=== PATIENT | male | born 2000 | race Caucasian/White ===

== ENCOUNTER 2022-06-15 18:43 | Emergency (ER) | payer BC, SELFPAY ==
--- NOTE | ~2022-06-15 | XR_ITS ---
EXAM: XR foot RT min 3V DATE: 06/15/2022 19:10 HISTORY: KICKING WITH PLANTAR SURFACE,PLANT.HEEL PN REFERRING UP POST . COMPARISON: None available. FINDINGS: Normal mineralization. No fracture or dislocation. No lytic or blastic lesion. Joint space s are maintained. No erosion or periosteal change. Soft tissues within normal limits. IMPRESSION: No acute osseous finding in the right foot. Reviewed, dictated and finalized at location [facility]
[2022-06-15 18:54] VITALS: BP 115/58; PULSE 87; RESP 18; TEMP 37.4; O2SAT 100
--- NOTE | 2022-06-15 19:24 | ED.LOWEXIN ---
HPI - Extremity Injury (Lower) General Chief Complaint: Extremity Injury, Lower Stated Complaint: Right Foot Injury Time Seen by Provider: 06/15/22 19:20 Source: patient, RN notes reviewed and old records reviewed Mode of arrival: ambulatory Limitations: no limitations History of Present Illness HPI Narrative: 22 year old male presents to [facility] care with complaints of kicking a board with his right heel region with pain for the past 3 days to area. Patient is able to bear weight to his right foot but is tender with ambulation. No bruising or redness noted to the plantar region of his right heel, no obvious deformity noted, patient has not taken any OTC medications for his discomfort. MD complaint: other (right heel pain) Onset (ago): day(s) (3) Type of Injury: blunt Severity scale (1-10): 6 Treatments prior to arrival: other (none) Related Data Allergies Allergy/AdvReac Type Severity Reaction Status Date / Time No Known Allergies Allergy Unknown Unverified 12/11/16 19:30 Review of Systems Review of Systems: CONSTITUTIONAL: Denies fever, chills, or sweats. EYES: Denies visual changes, redness, or discharge. ENT: Denies rhinorrhea, congestion, sore throat, or otalgia. CARDIOVASCULAR: Denies chest pain, palpitations, or edema. RESPIRATORY: Denies cough or dyspnea. GASTROINTESTINAL: Denies abdominal pain, nausea, vomiting, or diarrhea. GENITOURINARY: Denies dysuria or hematuria. SKIN: Denies rash or itching. MUSCULOSKELETAL: Denies back pain,positive for right plantar heel pain, or myalgia. NEUROLOGIC: Denies headache, numbness, or weakness. PSYCHIATRIC: Denies anxiety or depression. All systems reviewed & are unremarkable except as noted in HPI and below [facility] Past Medical History Medical History (Updated 06/24/22 @ 17:14 by Yuridia Arzola NP) ADHD (attention deficit hyperactivity disorder) Social History Social History (Updated 06/24/22 @ 17:19 by Yuridia Arzola NP) Smoking status: Unknown if ever smoked Alcohol intake: current Alcohol use details: social Substance use type: does not use Gender identity (if verbalized by the patient): Male Comments At time of signature, agree with nursing past medical, surgical, social and family history. There is no relevant family history pertinent to the presenting complaint Exam Narrative: GENERAL: Well-appearing, well-nourished, and in no acute distress. HEAD: Normocephalic, atraumatic. EYES: PERRLA and EOMI. ENT: Nares clear, no rhinorrhea or epistaxis. Mucous membranes moist.TM's normal with good light reflex, throat pink with no lesions or exudates or swelling NECK: Supple. no lymphadenopathy CHEST: Clear to auscultation. No respiratory distress.no cough noted ,SAO2 100% on room air HEART: Regular rate and rhythm. No murmur heard. Normal peripheral pulses. ABDOMEN: Soft, nontender, nondistended, normal active bowel sounds. EXTREMITIES: Normal range of motion. No edema.tenderness to right planter heel region with no redness or bruising noted. SKIN: Warm, dry, no rash. NEURO: No focal deficits. Alert and oriented x3. Course Course Emergency Course: Patient is aware of diagnosis, understands and agrees to treatment plan.? Anticipatory guidance given.? Patient agrees to follow-up as directed and is aware of reasons to seek care at the emergency department. Portions of this record may have been created with voice recognition software Level of Care: Express Care Visit Vital Signs Vital signs: Vital Signs Temperature 37.4 C 06/15/22 18:54 Pulse Rate 87 06/15/22 18:54 Respiratory Rate 18 06/15/22 18:54 Blood Pressure 115/58 L 06/15/22 18:54 Pulse Oximetry 100 06/15/22 18:54 Oxygen Delivery Room Air 06/15/22 18:54 Temperature 37.4 C 06/15/22 18:54 Pulse Rate 87 06/15/22 18:54 Respiratory Rate 18 06/15/22 18:54 Blood Pressure 115/58 L 06/15/22 18:54 Pulse Oximetry 100 06/15/22 18:54 Oxygen Delivery Room Air 06/15/22
== END 2022-06-15 19:50 | disposition home or self-care (01) ==
PROVIDERS: Emergency Provider Registered Nurse
DX: M79.671 Pain in right foot (principal)
CPT/HCPCS: 73630; 99203; G0463

== ENCOUNTER 2025-02-28 18:42 | Emergency (ER) | payer SELFPAY ==
[2025-02-28 19:01] VITALS: BP 144/82; PULSE 75; RESP 18; TEMP 36.5; O2SAT 99
[2025-02-28 19:43] LABS: EDCOVIDSCREEN Negative (Negative); EDINFLUASCREEN Negative (Negative); EDINFLUBSCREEN Negative (Negative); EDSTREPNEGPOS1 Negative (Negative)
--- NOTE | 2025-02-28 19:53 | ED_ITS ---
HPI - General Adult General Chief complaint: Upper Respiratory Infection Stated complaint: Sore Throat Source: patient Mode of arrival: ambulatory Limitations: no limitations History of Present Illness HPI narrative: Patient presents for evaluation of sore throat. Symptom onset today. He has had a mild cough for the last 2 days. 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 No fever, chills, nausea, vomiting, diarrhea. He does vape. He took a cough drop for his symptoms. Related Data Allergies Allergy/AdvReac Type Severity Reaction Status Date / Time apple skin Allergy Severe Hives Uncoded 02/28/25 19:00 Review of Systems Review of Systems: CONSTITUTIONAL: Denies fever, chills, or sweats. EYES: Denies visual changes, redness, or discharge. ENT: Reports sore throat. Denies rhinorrhea, congestion, or otalgia. CARDIOVASCULAR: Denies chest pain, palpitations, or edema. RESPIRATORY: Reports cough. Denies dyspnea. GASTROINTESTINAL: Denies abdominal pain, nausea, vomiting, or diarrhea. GENITOURINARY: Denies dysuria or hematuria. SKIN: Denies rash or itching. MUSCULOSKELETAL: Denies back pain, joint pain, or myalgia. NEUROLOGIC: Denies headache, numbness, dizziness, or weakness. PSYCHIATRIC: Denies anxiety or depression. PMFSH Past Medical History Medical History ADHD (attention deficit hyperactivity disorder) Surgical History Surgical History No pertinent past surgical history Family History Family History Mother Family history non-contributory Social History Social History Smoking status: Unknown if ever smoked Alcohol intake: current Alcohol use details: social Substance use type: does not use Gender identity (if verbalized by the patient): Male Exam Narrative: GENERAL: Well-appearing, well-nourished, and in no acute distress. HEAD: Normocephalic, atraumatic. EYES: PERRLA and EOMI. ENT: Nares clear, no rhinorrhea or epistaxis. Mucous membranes moist. Bilateral tonsillar swelling and erythema without exudate. Uvula is midline. Bilateral TMs pearly singh nonbulging NECK: Supple. No adenopathy or masses. No carotid bruits or JVD CHEST: Clear to auscultation. No respiratory distress. No wheezes rales or rhonchi HEART: Regular rate and rhythm. No murmur heard. Normal peripheral pulses. ABDOMEN: Soft, nontender, nondistended, normal active bowel sounds. EXTREMITIES: Normal range of motion. No edema. SKIN: Warm, dry, no rash. NEURO: No focal deficits. Alert and oriented x3. PSYCH: Normal mood and affect. Course Course Emergency Course: This is a 25-year-old male who presented for evaluation of sore throat. Rapid strep negative. Will send throat culture. Through shared decision making opted to proceed with antibiotic therapy. Will discharge with amoxicillin. Increase hydration. Adal-yni-gprfuyd agents for symptom management. Follow up with primary provider. Go to the ER for worsening symptoms. Patient in agreement with plan of care Level of Care: Express Care Visit Vital Signs Vital signs: Vital Signs Temperature 36.5 C 02/28/25 19:01 Pulse Rate 75 02/28/25 19:01 Respiratory Rate 18 02/28/25 19:01 Blood Pressure 144/82 H 02/28/25 19:01 Pulse Oximetry 99 02/28/25 19:01 Oxygen Delivery Room Air 02/28/25 19:01 Temperature 36.5 C 02/28/25 19:01 Pulse Rate 75 02/28/25 19:01 Respiratory Rate 18 02/28/25 19:01 Blood Pressure 144/82 H 02/28/25 19:01 Pulse Oximetry 99 02/28/25 19:01 Oxygen Delivery Room Air 02/28/25 19:01 Medical Decision Making Vital Signs Vital Signs: Vital Signs Temperature 36.5 C 02/28/25 19:01 Pulse Rate 75 02/28/25 19:01 Respiratory Rate 18 02/28/25 19:01 Blood Pressure 144/82 H 02/28/25 19:01 Pulse Oximetry 99 02/28/25 19:01 Oxygen Delivery Room Air 02/28/25 19:01 Temperature 36.5 C 02/28/25 19:01 Pulse Rate 75 02/28/25 19:01 Respiratory Rate 18 02/28/25 19:01 Blood Pressure 144/82 H 02/28/25 19:01 Pulse Oximetry 99 02/28/25 19:01 Oxygen Delivery Room Air 02/28/25 19:01 Lab Data Labs: Lab Results 02/28/25 Range/Units 19:41 POC Influenza A Ag Negative (Negative) POC Influenza B Ag Negative (Negative) POC SARS CoV-2 Ag Negative (Negative) POC Grp A Strep Screen Negative (Negative) Discharge Plan Discharge Clinical Impression: Pharyngitis Patient Disposition: Home Condition: Stable Instructions: Antibiotic Form, Pharyngitis (ED) Patient Language: Luxembourgish Prescriptions: New amoxicillin 500 mg tablet 500 mg PO Q12H Qty: 20 0RF Follow-up/Referrals: Tam Adrian MD [Physician, Family Practice] Stand Alone Forms: Work/School Release IP Time of Disposition: 19:49
== END 2025-02-28 19:54 | disposition home or self-care (01) ==
PROVIDERS: Emergency Provider Nurse Practitioner
DX: J02.9 Acute pharyngitis, unspecified (principal); F90.9 Attention-deficit hyperactivity disorder, unspecified type; F17.290 Nicotine dependence, other tobacco product, uncomplicated; Z20.822 Contact with and (suspected) exposure to COVID-19
CPT/HCPCS: 87081; 87426; 87804; 87880; 99213; G0463

== ENCOUNTER 2025-05-14 15:01 | Emergency (ER) | payer SELFPAY ==
--- NOTE | 2025-05-14 15:02 | ED.URI ---
HPI - URI/Sore Throat General Chief Complaint: Upper Respiratory Infection Stated Complaint: Sore Throat Time Seen by Provider: 05/14/25 15:02 Source: patient Mode of arrival: ambulatory Limitations: no limitations History of Present Illness HPI Narrative: Aniket is a 25 year old female patient presenting to the clinic today with c/o sore throat, fever, body aches, and headache x 4 days. Highest fever 101.3F. Has taken advil for his symptoms. Rates pain 04/14. Related Data Allergies Allergy/AdvReac Type Severity Reaction Status Date / Time apple skin Allergy Severe Hives Uncoded 02/28/25 19:00 Review of Systems Review of Systems: Pertinent positives per HPI. Patient denies any rash, visual changes, dizziness, cough, runny nose, shortness of breath, chest pain, palpitations, nausea, vomiting, diarrhea, constipation, abdominal pain, or any urinary issues. PMFSH Past Medical History Medical History ADHD (attention deficit hyperactivity disorder) Surgical History Surgical History No pertinent past surgical history Family History Family History Mother Family history non-contributory Social History Social History Alcohol intake: current Alcohol use details: social Substance use type: does not use Gender identity (if verbalized by the patient): Male Comments At the time of my signature, I reviewed and agree with the nursing past medical, surgical, social, and family history. There is no relevant family history pertinent to the patient complaint. Exam Narrative: General: Well-developed, well nourished, in no apparent distress Head: Normocephalic, atraumatic Eyes: Pupils equally round and reactive to light bilaterally, EOM intact, sclera and conjunctive clear, no discharge, lids normal Ears: TMs intact and clear, ear canals clear, no drainage, grossly hearing normal. Nose: Nares patent, no discharge, no inflammation, no sinus tenderness. Mouth: Oropharynx red with 4+ tonsillar enlargement with exudate, without lesions or masses, good dentition, MMM. Neck: Supple, trachea midline, enlargement of anterior cervical nodes, no thyroid masses or goiter palpable. Cardio: Regular rate and rhythm, s1 and s2 normal, no murmur appreciated. Resp: Clear to auscultation bilaterally anteriorly and posteriorly, no rhonchi, rales, wheezing or rubs Course Course Emergency Course: Portions of this record may have been created with voice recognition software. Level of Care: Express Care Visit Vital Signs Vital signs: Vital Signs Temperature 36.9 C 05/14/25 15:06 Pulse Rate 84 05/14/25 15:06 Respiratory Rate 16 05/14/25 15:06 Blood Pressure 146/80 H 05/14/25 15:06 Pulse Oximetry 99 05/14/25 15:06 Oxygen Delivery Room Air 05/14/25 15:06 Temperature 36.9 C 05/14/25 15:06 Pulse Rate 84 05/14/25 15:06 Respiratory Rate 16 05/14/25 15:06 Blood Pressure 146/80 H 05/14/25 15:06 Pulse Oximetry 99 05/14/25 15:06 Oxygen Delivery Room Air 05/14/25 15:06 Vital signs reviewed MDM - URI/Sore Throat MDM Narrative Medical decision making narrative: At the time of visit patient is resting comfortably on the exam table. Patient appears to be nontoxic. C/o sore throat, fever, body aches, and headache x 4 days. Highest fever 101.3F. Has taken Advil for his symptoms. Rates pain 10/10. Strep test was negative in the clinic today. Labs: Strep test was negative in the clinic today. Plan: Centor criteria 4/4. Will empirically treat with Amoxicillin. Supportive measures were discussed with the patient and they voiced understanding discharge instructions and agrees to treatment plan. Return precautions reviewed c/o sore throat, fever, body aches, and headache x 4 days. Highest fever 101.3F. Has taken advil for his symptoms. Rates pain 10/10. Differential Diagnosis Differential diagnosis: Likely upper respiratory infection, otitis media, sinusitis, viral infection, bronchitis, influenza and pharyngitis Discharge Plan Discharge Clinical Impression: Exudative pharyngitis Patient Disposition: Home Condition: Stable Instructions: Antibiotic Form, Pharyngitis (ED) Additional Instructions: Take prescription medications only as prescribed- amoxicillin Increase fluids and stay well hydrated May take Tylenol or motrin as directed on bottle for pain/fever May use Flonase 1 spray in each nare daily May take OTC antihistamines such as Zyrtec or Claritin daily as directed on bottle May apply Vicks vapor rub to chest to open sinuses Sinus rinses for congestion Cepacol spray, cough drops, throat lozenges, warm tea with honey/lemon, gargle salt water to soothe throat BRAT diet for diarrhea Clear liquids x 24 hours then advance as tolerated for nausea/vomiting Go to the ED if you develop a worsening in your condition- high fever not controlled by Tylenol or Motrin, dehydration, weakness, lethargy, shortness of breath, or chest pain. Follow up with your PCP in 3-5 days if symptoms persist. Patient Language: Palauan Prescriptions: New amoxicillin 875 mg tablet 875 mg PO Q12H 10 Days Qty: 20 0RF Follow-up/Referrals: UNKNOWN,DOCTOR [Non-Staff] Stand Alone Forms: Work/School Release IP Time of Disposition: 15:36 Quality NIHSS Nursing Documentation ED NIHSS nursing documentation: reviewed/agree
[2025-05-14 15:06] VITALS: BP 146/80; PULSE 84; RESP 16; TEMP 36.9; O2SAT 99
== END 2025-05-14 15:40 | disposition home or self-care (01) ==
PROVIDERS: Emergency Provider Nurse Practitioner Family
DX: J02.9 Acute pharyngitis, unspecified (principal)
CPT/HCPCS: 99213; G0463